=== PATIENT | female | born 1975 | race Caucasian/White ===

== ENCOUNTER 2017-05-22 07:10 | Emergency (ER) | payer OTHER ==
--- NOTE | ~2017-05-22 | CR142 ---
[facility] A Service of [facility] RADIOLOGY TEXT RESULTS PATIENT: RITA AMES LOCATION: SED : 79 UNIT #: [id number] AGE: [address]: Kenna Goins MD SEX: F ORDER DR: [id number] [address] [address] [id number] E MR#: [id number] Acc #: [id number] NAME: RITA AMES : 1975 SEX: F STUDY DATE/TIME: 05/22/2017 7:19 UNIT: SED ROOM: STUDY DESCRIPTION: CR Hand Min 3 Views Rt Attending Physician: Kenna Goins M.D. Ordering Physician: Kenna Goins M.D. MEDICAL IMAGING REPORT This report is preliminary unless electronic signature is present. EXAM Right hand series 05/22/2017 HISTORY Trauma. Possible finger fracture first finger. Fell over dog. Pain. Right hand swelling. Unable to move first finger. Began yesterday morning. FINDINGS AP, lateral and oblique radiographs of the right hand are presented. Poor quality examination. Digital overlap on the lateral and oblique views. Complete oblique fracture involving the ulnar aspect of base of proximal phalanx second digit. The fracture fragment measures approximately 6-10 mm. Fracture plane enters the second metacarpophalangeal joint. There is minimal distraction of the distal fracture plane by perhaps 2 mm. No other fractures. There is no traumatic joint malalignment. Generalized soft tissue swelling of the second digit with extension of soft tissue swelling into dorsal and probably palmar aspects of the hand as well. No soft tissue defect, subcutaneous air or radiodense foreign body. Dictated by... Molina Agrawal M.D. THIS IS AN ELECTRONICALLY VERIFIED REPORT Molina Agrawal M.D. at 05/23/2017 5:40 PM BELLO/vern TD: 05/22/2017 09:40 [facility] A Service of [facility] RADIOLOGY TEXT RESULTS PATIENT: RITA AMES LOCATION: [facility] [place] : [birth year] UNIT #: [id number] AGE: [address]: Kenna Goins MD SEX: F ORDER DR: JOB #: [id number] MEDICAL IMAGING REPORT Page 1 of 1
[~2017-05-22 07:10] MED LIST: MOTRIN600 M1 PO
[2017-05-22] MEDS ORDERED: NO MEDICATIONS (07:15)
== END 2017-05-22 07:55 | disposition home or self-care (01) ==
LOC: SED 07:10
DX: S62.610A Displaced fracture of proximal phalanx of right index finger, initial encounter for closed fracture (principal); F17.210 Nicotine dependence, cigarettes, uncomplicated; Z88.2 Allergy status to sulfonamides; W01.0XXA Fall on same level from slipping, tripping and stumbling without subsequent striking against object, initial encounter; Y92.009 Unspecified place in unspecified non-institutional (private) residence as the place of occurrence of the external cause; Z23 Encounter for immunization
CPT/HCPCS: 29130; 73130; 90471; 90715; 99283